=== PATIENT | female | born 1950 | race Caucasian/White ===

== ENCOUNTER 2018-07-16 08:46 | Emergency (ER) | payer MEDICARE, OTHER | END 2018-07-16 10:55 | disposition home or self-care (01) | LOC: E/R 10:55 | DX: H54.62 Unqualified visual loss, left eye, normal vision right eye (principal); E11.9 Type 2 diabetes mellitus without complications; F17.210 Nicotine dependence, cigarettes, uncomplicated | CPT/HCPCS: 99282 ==